=== PATIENT | female | born 1985 | race Caucasian/White ===

== ENCOUNTER 2016-11-04 14:12 | Emergency (ER) | payer OTHER ==
[~2016-11-04] VITALS: Ht 157.5 cm; Wt 58.1 kg
[~2016-11-04 14:12] MED LIST: AMBIEN5 MG PO; BIOTIN5 MG PO; CYMBALTA60 MG PO; DHA PRENATAL200 MG PO; ENDOCET 5-3251 EACH PO; FOLIC ACID1 MG PO; IBUPROFEN800 MG PO; LEXAPRO20 MG PO; MAGNESIUM27 MG PO; MOTRIN800 MG PO; Motrin PO; NATALCARE RX1 TABLE1 PO; NUCYNTA50 MG PO; POTASSIUM-9999 MG PO; PRENATAL PO; PRENATAL TABLE1 EAC3 PO; PRENATAL TABLE1 EACH PO; Percocet 5/325,Endoc PO; VENTOLIN HFA18 GM IH; VITAMIN D5000 UNIT PO; WELLBUTRIN XL300 MG PO; WELLBUTRIN100 MG PO; ZOFRAN ODT4 MG PO; ZOLOFT25 MG PO
[2016-11-04 15:02] VITALS: BP 156/94
[2016-11-04 15:27] LABS: HEMATOCRIT 46.1 % (36.0-46.0); MCH 29.4 PG (29.0-34.0); MCV 89.2 FL (83-99); MEAN PLAT.VOLUME 9.1 uM^3 (9.5-12.4); PLATELET COUNT 200 K/uL (156-360); RBC DIS.WIDTH-CV 12.3 % (11.8-14.6); RBC DIS.WIDTH-SD 40.4 % (39-53); RED BLOOD COUNT 5.17 M/uL (3.80-5.20); WHITE BLOOD COUNT 4.8 K/uL (4.1-10.2)
[2016-11-04 15:35] LABS: CHLORIDE 102 mEq/L (99-109); POTASSIUM 4.4 mEq/L (3.7-5.4); SODIUM 136 mEq/L (136-147)
[2016-11-04 15:38] LABS: GLUCOSE 85 mg/dL (70-99)
[2016-11-04 15:39] LABS: ANION GAP 10 MEQ/L (2-14); TOTAL BILIRUBIN 0.4 mg/dL (0.0-1.0)
[2016-11-04 15:41] LABS: ALKALINE PHOSPHATASE 76 IU/L (3-129); GFR ESTIMATE (CALCULATED) > 59 mL/min/
[2016-11-04 15:42] LABS: UREA NITROGEN (BUN) 8 mg/dL (9-23)
[2016-11-04 15:45] LABS: LIPASE 17 U/L (1.0-51.0)
[2016-11-04 15:50] LABS: QUANTITATIVE HCG < 4.0 MIU/ML
[2016-11-04 16:19] LABS: ADD MIUA? YES; BILIRUBIN NEGATIVE; BLOOD NEGATIVE; COLOR AMBER ((YELLOW)); GLUCOSE (STRIP) NEGATIVE; KETONES NEGATIVE; LEUKOCYTES NEGATIVE; NITRITE NEGATIVE; PROTEIN (STRIP) NEGATIVE; UROBILINOGEN 0.2 MG/DL (0.2-1.0)
[2016-11-04 16:26] LABS: BACTERIA RARE /HPF; EPITHELIAL CELLS RARE /HPF; MUCUS NONE SEEN /LPF; RED BLOOD CELLS 0-5 /HPF (0-5); UCUL ADDED? NO; WHITE BLOOD CELLS 0-5 /HPF (0-5)
== END 2016-11-04 18:10 | disposition left against medical advice (07) ==
LOC: EME 14:12
DX: R11.0 Nausea (principal); Z53.21 Procedure and treatment not carried out due to patient leaving prior to being seen by health care provider
CPT/HCPCS: 80053; 81003; 83690; 84702; 85027